=== PATIENT | female | born 1980 | race Caucasian/White ===

== ENCOUNTER 2017-08-19 11:03 | Inpatient (IN) | payer OTHER ==
[~2017-08-19] VITALS: Ht 162.6 cm; Wt 105.2 kg
[~2017-08-19 11:03] MED LIST: ALBU8.5H8 INH
[2017-08-19] MEDS ORDERED: LR 1,000 ML IV ONE (11:56)
[2017-08-19] MEDS ORDERED: LR 1,000 ML IV SCH (11:56)
[2017-08-19] MEDS ORDERED: OXYTOCIN/NORMAL SALINE 1,000 ML IV SCH (11:56)
[2017-08-19] MEDS ORDERED: NALBUPHINE HCL 10 MG/ML AMP IVP PRN (12:00)
[2017-08-19 12:53] VITALS: BP_SYST 104
[2017-08-19 13:01] LABS: BASOPHILS % (AUTO) 0.2 % (0.0-2.0); EOSINOPHILS # (AUTO) 0.2 K/uL (0.0-0.4); HEMATOCRIT 36.2 % (36-48); HEMOGLOBIN 12.6 g/dL (12.0-16.0); LYMPHOCYTES # (AUTO) 1.6 K/uL (1.0-5.5); LYMPHOCYTES % (AUTO) 6.6 % (20.5-51.5); MEAN CORPUSCULAR HEMOGLOBIN 29 pg (27-31); MEAN CORPUSCULAR HGB CONC 35 % (32-36); MEAN CORPUSCULAR VOLUME 82 fL (79.0-98.0); MONOCYTES # (AUTO) 1.1 K/uL (0.0-1.0); MONOCYTES % (AUTO) 4.6 % (1.7-9.3); NEUTROPHILS # (AUTO) 20.6 K/uL (1.8-7.7); NEUTROPHILS % (AUTO) 87.6 % (40.0-70.0); PLATELET COUNT (AUTO) 234 K/uL (130-430); RED CELL DISTRIBUTION WIDTH 13.5 % (9.0-15.0); WHITE BLOOD COUNT (AUTO) 23.5 K/uL (4.8-10.8)
[2017-08-19] MEDS ORDERED: NALOXONE HCL 0.4 MG/ML AMP (NARCAN) IVP PRN (13:45)
[2017-08-19] MEDS ORDERED: FENT2mCg/mL-ROPIVA0.2%/NS EPID 150 ML EP SCH (13:45)
[2017-08-19] MEDS ORDERED: FENT2mCg/mL-ROPIVA0.2%/NS EPID 150 ML EP ONE (13:51)
[2017-08-19] MEDS ORDERED: LIGHT MINERAL OIL 10 ML VIAL MC ONE (23:00)
[2017-08-19] MEDS ORDERED: LIDOCAINE PF 1% 30ML(POUR BTL) INJ ONE (23:00)
[2017-08-20] MEDS ORDERED: OXYTOCIN/NORMAL SALINE 1,000 ML IV ONE (05:27)
[2017-08-20] MEDS ORDERED: OXYTOCIN/NORMAL SALINE 1,000 ML IV SCH (05:27)
[2017-08-20] MEDS ORDERED: ANUSOL 1 EA SUPP.RECT (PREPARATION H) RC PRN (05:30)
[2017-08-20] MEDS ORDERED: GLYCERIN/WITCH HAZEL (TUCKS PADS) TP PRN (05:30)
[2017-08-20] MEDS ORDERED: HYDROCORTISONE 0.5%, 28.35 GM TOPICAL CREAM TP PRN (05:30)
[2017-08-20] MEDS ORDERED: METHYLERGONOVINE MALEATE 0.2 MG TABLET PO PRN (05:30)
[2017-08-20] MEDS ORDERED: MEASLES,MUMPS&RUBELLA VACC/PF 12500 UNIT/0.5 ML VIAL SUBQ PRN (05:30)
[2017-08-20] MEDS ORDERED: DERMOPLAST SPRAY TP PRN (05:30)
[2017-08-20] MEDS ORDERED: LANOLIN 7 GM OINT. TP PRN (05:30)
[2017-08-20] MEDS ORDERED: RHO(D) IMMUNE GLOBULIN/MALTOSE 1500 UNITS/1.3 ML (WINHRO) IM PRN (05:30)
[2017-08-20] MEDS ORDERED: OXYCODONE/ACETAMINOPHEN 5-325 TABLET ONE (05:42)
[2017-08-20] MEDS: OXYCODONE/ACETAMINOPHEN 5-325 TABLET PO PRN ×4 (05:45→20:42)
[2017-08-20] MEDS: IBUPROFEN 800 MG TABLET PO PRN ×3 (07:37→18:04)
[2017-08-20] MEDS: DOCUSATE SODIUM 100 MG CAPSULE PO PRN (20:43)
[2017-08-20] MEDS ORDERED: TEMAZEPAM 15 MG CAPSULE PO PRN (21:00)
[2017-08-21] MEDS: IBUPROFEN 800 MG TABLET PO PRN ×3 (00:15→17:44)
[2017-08-21] MEDS: OXYCODONE/ACETAMINOPHEN 5-325 TABLET PO PRN ×4 (02:45→21:58)
[2017-08-21 07:14] LABS: HEMATOCRIT 29.1 % (36-48); HEMOGLOBIN 9.8 g/dL (12.0-16.0)
[2017-08-21] MEDS: DOCUSATE SODIUM 100 MG CAPSULE PO PRN ×2 (08:30→21:58)
[2017-08-21] MEDS: SENNOSIDES/DOCUSATE SODIUM 1 TAB TABLET(SENOKOT-S) PO PRN (21:58)
[2017-08-22] MEDS: IBUPROFEN 800 MG TABLET PO PRN ×4 (05:51→23:19)
[2017-08-22] MEDS: OXYCODONE/ACETAMINOPHEN 5-325 TABLET PO PRN ×3 (10:34→23:19)
[2017-08-22] MEDS: DOCUSATE SODIUM 100 MG CAPSULE PO PRN ×2 (10:34→23:19)
[2017-08-22] MEDS: SENNOSIDES/DOCUSATE SODIUM 1 TAB TABLET(SENOKOT-S) PO PRN (23:19)
== END 2017-08-22 23:22 | disposition home or self-care (01) | DRG 775 ==
LOC: SPU 11:03 → OBSVTOIN 11:03 → SPU 08-22 10:54
PROVIDERS: ADMIT Obstetrics & Gynecology; ATTEND Obstetrics & Gynecology
PROC: 10E0XZZ Delivery of Products of Conception, External Approach (ICD-10-PCS; principal; 2017-08-20)
PROC: 0UQGXZZ Repair Vagina, External Approach (ICD-10-PCS; 2017-08-20)
PROC: 00HU33Z Insertion of Infusion Device into Spinal Canal, Percutaneous Approach (ICD-10-PCS; 2017-08-20)
PROC: 10907ZC Drainage of Amniotic Fluid, Therapeutic from Products of Conception, Via Natural or Artificial Opening (ICD-10-PCS; 2017-08-20)
PROC: 3E0134Z Introduction of Serum, Toxoid and Vaccine into Subcutaneous Tissue, Percutaneous Approach (ICD-10-PCS; 2017-08-20)
DX: O42.92 Full-term premature rupture of membranes, unspecified as to length of time between rupture and onset of labor (principal); O71.4 Obstetric high vaginal laceration alone; E66.01 Morbid (severe) obesity due to excess calories; J45.909 Unspecified asthma, uncomplicated; O99.214 Obesity complicating childbirth; O99.52 Diseases of the respiratory system complicating childbirth; O66.0 Obstructed labor due to shoulder dystocia; Z37.0 Single live birth; Z68.39 Body mass index [BMI] 39.0-39.9, adult; Z3A.40 40 weeks gestation of pregnancy; O09.523 Supervision of elderly multigravida, third trimester; Z23 Encounter for immunization
CPT/HCPCS: 36415; 81002-TC; 85018-TC; 85025; 86592; 86886; 86900; 86901; J2001; J2590; J3010; J7120